=== PATIENT | female | born 1990 | race Caucasian/White ===

== ENCOUNTER → 2018-06-06 21:54 | Observation (INO) ==
--- OUTSIDE RECORDS SUMMARY | 2018-06-06 18:56 | External Medical Summary | Referral Summary ---
:1990 Author Organization [facility] [address] [place] [address] Care Team Providers Name Role Phone Leopoldo Wolrey Primary Care Physician Encounter VC Date(s): 09/01/17 - 09/01/17 [facility] [place] [address] [place] Discharge Diagnosis: Grief Discharge Diagnosis: Depression with anxiety Discharge Disposition: 01-Home or Self Care Attending Physician: Juany Cain APRN Admitting Physician: Juany Cain APRN Vital Signs Most recent to oldest [Reference Range]: 1 Temperature Tympanic [36.6-38.1 degC] 36.2 degC *LOW* (09/01/17 10:48 AM) Peripheral Pulse Rate [60-100 bpm] 64 bpm (09/01/17 10:48 AM) Blood Pressure [90-140/60-90 mmHg] 96/62 mmHg (09/01/17 10:48 AM) Allergies, Adverse Reactions, Alerts No Known Allergies Medications busPIRone 10 mg oral tablet 10 mg 1 tabs, Oral, TID, # 90 tabs, 0 Refill(s), Pharmacy: [id number], 1 tabs Oral TID Start Date: 09/01/17 Status: OrderedWellbutrin XL 150 mg/24 hours oral tablet, extended release 150 mg 1 tabs, Oral, q24hr, # 30 tabs, 0 Refill(s), Pharmacy: [id number] Start Date: 09/01/17 Status: Ordered Social History Social History Type Response Smoking Status Never smoker entered on: 12/20/14 Assessment and Plan Extracted from: Title: Office Visit Note Author: Juany Cain APRN Date: 09/01/17 Depression with anxiety Ordered: Office Visit Level 4 Est 15824 Grief Discussed methods of dealing with grief,loss ofanticipated relationship repairand creation of positive memoriesfrom past experiences with the loss loved one. Ordered: Office Visit Level 4 Est 77215 30 minute visit [id number] in counseling. We discussedinitiation of a routine physical exercise to stimulate depression reducinghormones. We also looked at the role of unresolved grief issue s as a contribute to her currentdepression. She oftenkeeps her feelings to herselfand I urged her to reinforce social activities and verbalization of feelings, needs, and desires. Will begin WellbutrinXL 150 mg once every 24 hours. BuSpar 10 mg up to 3 times a day when necessary anxiety. Will see her back in 2 weeks unless she has problems sooner Addendum by Leopoldo Worley DO on September 01, 2017 13:12:15 CDT I reviewed this chart, the patient's medical history, and the Resident's/DIRECTOR IMMUNOLOGY 's/PA/RN's/PharmD's documented findings, and concur with the assessment and plan as above.
--- OUTSIDE RECORDS SUMMARY | 2018-06-06 18:56 | External Medical Summary | Continuity of Care Document ---
:1990 Author Organization [facility] Address [address] [place], [place] [id number] Phone Care Team Providers Name Role Phone Juany Wong Unavailable Unavailable Allergies, Adverse Reactions, Alerts Substance Reaction Severity Status No Known Drug Allergies Unknown Active Medications Medication Instructions Dosage Effective Dates Status Comments (start - stop) buspirone 10 mg take 1 tablet by oral 10 MG - Active tablet route 3 times every day bupropion HCl XL 150 take 1 tablet by oral 150 MG - Active mg 24 hr tablet, route every day extended release Problems Condition Effective Dates (start - stop) Clinical Status Pap Smear Screening, Cervix - Encounter for removal of intrauterine - contraceptive device Encounter for removal of intrauterine contraceptive device Pelvic Pain - Active Depression Active Active Procedures Procedure Date Remove intrauterine device (IUD) No Charge Office Visit Specimen handling/transport Results Test Name Date and Time Measure Units Reference Range Abnormal Flag Comments Unknown Advance Directives Directive Yes / No Effective Date File Name Unknown Encounters Encounter Practice Location Reason(s) Diagnoses Date Provider Care Team Description For Visit Members [facility] [place] Pap Smear Jace Benton In Womens Screening, [address] 700 Provider: Eugene ANDRADE CervixPavan 7 [facility] [address], for removal of Center [place], [place], intrauterine , [place] Angel 700 [id number], contraceptive 120, Medical [place] deviceEncounter [address] [place] [address] tel:[phone] for removal of [place], [place] 120, [address] intrauterine [id number] [place], contraceptive , [place]. [place], device tel: [phone]. [phone] tel:[phone] Reji Rey Dec-1 Jace Referring In Womens 8-201 [place]. 700 Provider: Health [place], 4 Medical [place] [address], Center [place], , [facility] 700 [id number], 120, Medical [place], [place] tel:+21 [place], [facility] 120, [address] [id number] [place], , . [place], tel: [phone]. [id number] tel:[phone] Reji [place] Oct-2 Jace In Womens 8-201 [place]. 700 Health [place], 4 Medical [address], [place], , [facility] [id number], 120, [place], tel:+21 [place], [id number] , [place]. tel: [phone] Reji Rey Apr-3 Amaya In Womens 0-201 Lisandra. Health [facility], 4 700 [address], [place], [place], [place] [id number], , [facility] 120, tel:[phone] [place], [phone] [place], [id number] , [place]. tel: [phone] Family History Family Member Diagnosis Age At Onset No family history of Osteoporosis Paternal Grandmother Diabetes mellitus No family history of Lung Disease No family history of Hypertension Paternal Grandmother Epilepsy No family history of Uterine Cancer No family history of Kidney Problems No family history of Breast Cancer No family history of Thyroid Disorder No family history of Ovarian Cancer Paternal Grandmother Stroke Paternal Grandmother Cardiovascular Disease No family history of Colon Cancer Immunizations Vaccine Date Status Comments Tdap completed Source: New Immunization Record Influenza, seasonal, injectable, completed Source: Other Provider preservative free, 3 yrs or older Payers Payer name Insurance type Covered constitution party ID Authorization(s) JUHI TRAN [id number] Social History Type Description Quantity Date Captured Alcohol Use Details No Caffeine Use Details combo rare per day Tobacco Use Status Never smoked tobacco Smoking Status Never smoker Non-Smoking Tobacco Use : No Details Available : No Details Available Details Vital Signs Date / Height Weight BMI Pulse Blood Temperature Respiratory Body Head BMI Time: Rate Pressure Rate Surface Circumference percentile Area 170.80 103 140/87 -2017 lbs /min mm[Hg] 9:31 AM Chief Complaint And Reason For Visit Unknown Chief Complaint And Reason For Visit Reason For Referral Reason For Referral Unknown Plan Of Care Date Type Action Status Future Order: Lab Order Pap Smear With HPV Reflex If ASCUS Ordered ([id number]) Date Type Problem Goal Intervention Status Start Date Unknown. History Of Present Illness Encounter Date Complaint History Of Present Illness This patient has no known history of present illness Functional Status Encounter Date Functional Assessment Cognitive Assessment Unknown Medications Administered Medication Instructions Dosage Effective Dates (start - stop) Status Comments Drug Treatment Unknown Instructions Date Instruction Additional Information Unknown
--- OUTSIDE RECORDS SUMMARY | 2018-06-06 18:56 | External Medical Summary | Continuity of Care Document ---
:1990 Author Organization [facility] Address [address] [place], [place] [id number] Phone Care Team Providers Name Role Phone [...] Measure Units Reference Range Abnormal Flag Comments Panel Description: Pap Smear With HPV Reflex If ASCUS Document Pap Smear 08:30:00 See scanned report Advance Directives Directive Yes / No Effective Date File Name Unknown Encounters Encounter Practice Location Reason(s) Diagnoses Date Provider Care Team Description For Visit Members Reji [place] Pap Smear Jace Benton In Womens Screening, 8-201 [place]. 700 Provider: Eugene ANDRADE, CervixEncounter 7 Medical [place] [address], for removal of Center [place], intrauterine , [facility] 700 [id number], contraceptive 120, Medical [place] deviceEncounter Ashley [address] tel: for removal of [place], [place] 120, [address] intrauterine [id number] [place], contraceptive , [place]. [place], device tel: [phone]. [id number] tel:[phone] Reji [place] Dec-1 Jace Referring In Womens 8-201 [place]. 700 Provider: Health [place], 4 [facility] [address], [place], , [facility] 700 [id number], 120, Medical [place] tel:21 [place], Miguel [place] 120, [address] [id number] [place], , . [place], tel: [phone]. [id number] tel:[phone] Reji [place] Oct-2 Jace In Womens 8-201 [place]. 700 Health [place], 4 Medical [address], [place], , [facility] [id number], 120, [place], tel:21 [place], [id number] , [place]. tel: [phone] Reji Rey Apr-3 Amaya In Womens 0-201 Lisandra. Health [place], 4 700 [address], [facility] [place], [place] [id number], , [facility] 120, tel:21 [place], [address] [place], [id number] , [place]. tel: [phone] Family History Family Member Diagnosis Age At [...] Covered constitution party ID Authorization(s) JUHI TRAN [id number] Social History Type Description Quantity Date Captured [...] Plan Of Care Date Type Action Status Unknown. Date Type Problem Goal Intervention Status Start [...]
--- OUTSIDE RECORDS SUMMARY | 2018-06-06 18:56 | External Medical Summary | Continuity of Care Document ---
:1988 Author Organization [facility] Address [address] [place], [place] [phone] Phone Care Team Providers Name Role Phone [...] Active Depression Active Active Procedures Procedure Date Unknown Results Test Name Date and Time Measure Units Reference Range Abnormal Flag Comments Unknown Advance Directives Directive Yes / No Effective Date File Name Unknown Encounters Encounter Practice Location Reason(s) Diagnoses Date Provider Care Team Description For Visit Members Reji Rey Mar-0 Jace In Womens 5-201 [place]. 700 Health [place], 8 Medical [address], Center [place], Miguel Angel [place] [id number], 120, [place], tel:[phone] [place], [id number] , [place]. tel: [phone] Reji Rey Pap Smear Nov-2 Jace Referring In Womens Screening, 8-201 [place]. 700 Provider: Eugene ANDRADE CervixEncounter 7 Medical [place] [address], for removal of Center [place], intrauterine Miguel [place] 700 [id number], contraceptive 120, Medical deviceEncounter [place] tel:[phone] for removal of [place], [place] 120, [address] intrauterine [id number] [place], contraceptive , [place]. [place], device tel: [phone]. [id number] tel:[phone] Reji [place] Dec-1 Jace Referring In Womens 8-201 [place]. 700 Provider: Health [facility], 4 [facility] [address], [place], , [place] [id number], 120, [facility] tel:+21 [place], [facility] 120, [address] [id number] [place], , . [place], tel: [phone]. [id number] tel:[phone] Reji [place] Oct-2 Jace In Womens 8-201 [place]. 700 Health [facility], 4 Medical [address], [place], , [facility] [id number], 120, [place], tel:+21 [place], [id number] , [place]. tel: [phone] Reji Rey Apr-3 Amaya In Womens 0-201 Lisandra. [facility], 4 [facility] [address], [facility] Kevin [place], [place] [id number], , [facility] 120, tel:+21 [place], [address] [place], [id number] , [place]. tel: [phone] Family History Family Member Diagnosis Age At [...] Covered constitution party ID Authorization(s) JUHI TRAN [id number] Social History Type Description Quantity Date Captured Unknown Vital Signs Date / Height Weight BMI Pulse Blood Temperature Respiratory Body Head BMI Time: Rate Pressure Rate Surface Circumference percentile Area Unknown Chief Complaint And Reason For Visit Unknown [...]
--- OUTSIDE RECORDS SUMMARY | 2018-06-06 18:56 | External Medical Summary | Continuity of Care Document ---
:1988 Author Organization [facility] Address [address] [place], [place] [id number] Phone Care Team Providers Name Role Phone [...] Team Description For Visit Members Reji Rey Sep-3 Jace In Womens 0-201 [place]. 700 Health [place], 7 Medical [address], Center [place], Miguel [place] [id number], 120, [place], tel:[phone] [place], [id number] , [place]. tel: [phone] Reji [place] Pap Smear Sep- Jace Referring In Womens Screening, 8-201 [place]. 700 Provider: Eugene ANDRADE CervixEncounter 7 Medical [place] [address], for removal of Center [place], intrauterine [place] 700 [id number], contraceptive 120, Medical deviceEncounter [place] tel:[phone] for removal of [place], [place] 120, [address] intrauterine [id number] [place], contraceptive , [place]. [place], device tel: [phone]. [id number] tel:[phone] Reji [place] Dec-1 Jace Referring In Womens 8-201 [place]. 700 Provider: Health [place], 4 [facility] [address], [place], , [place] [id number], 120, Medical [facility] tel:+21 [place], [facility] 120, [address] [id number] [place], , . [place], tel: [phone]. [id number] tel:[phone] Reji [place] Oct-2 Jace In Womens 8-201 [place]. 700 Health [place], 4 Medical [address], [place], , [facility] [id number], 120, [place], tel:+21 [place], [id number] , [place]. tel: [phone] Reji Rey Apr-3 Amaya In Womens 0-201 Lisandra. [facility], 4 [facility] [address], [facility] Kevin [place], [place] [id number], , [facility] 120, tel:+21 [place], [address] [place], [id number] , [place]. tel: [phone] Family History Family Member Diagnosis Age At [...] older Payers Payer name Insurance type Covered libertarian ID Authorization(s) JUHI TRAN [id number] Social History Type Description Quantity Date Captured [...]
--- OUTSIDE RECORDS SUMMARY | 2018-06-06 18:56 | External Medical Summary | Continuity of Care Document ---
:1990 Author Organization [facility] Address [address] [place], [place] [id number] Phone Care Team Providers Name Role Phone [...] Team Description For Visit Members Reji Rey Oct- Jace In Womens 0-201 [place]. 700 Health [place], 7 Medical [address], Center [place], [place] [id number], 120, [place], tel:[phone] [place], [id number] , [place]. tel: [phone] Reji Rey Pap Smear Sep- Jace Referring In Womens Screening, 8-201 [place]. 700 Provider: Eugene ANDRADE CervixEncounter 7 Medical [place] [address], for removal of Center [place], intrauterine [place] 700 [id number], contraceptive 120, Medical deviceEncounter [place] tel:+21 for removal of [place], [place] 120, [address] intrauterine [id number] [place], contraceptive , [place]. [place], device tel: [phone]. [id number] tel:[phone] Reji [place] Dec-1 Jace Referring In Womens 8-201 [place]. 700 Provider: Health [facility], 4 [facility] [address], [place], , [place] [id number], 120, [facility] tel:+21 [place], [facility] 120, [address] [id number] [place], , . [place], tel: [phone]. [id number] tel:[phone] Reji [place] Oct-2 Jace In Womens 8-201 [place]. 700 Health [place], 4 Medical [address], [place], , [facility] [id number], 120, [place], tel:+21 [place], [id number] , [place]. tel: [phone] Reji Rey Apr-3 Amaya In Womens 0-201 Lisandra. [facility], 4 [facility] [address], [facility] Kevin [place], [place] [id number], , [facility] 120, tel:+21 [place], [address] [place], [id number] , [place]. tel: [phone] Family History Family Member Diagnosis Age At [...] type Covered libertarian ID Authorization(s) JUHI TRAN [id number] Social History Type Description Quantity Date Captured [...]
[2018-06-06] MEDS: LR 1,000 ML IV SCH ×2 (19:32→20:41)
[2018-06-06 19:55] VITALS: RESP 16; O2SAT 100
[~2018-06-06 21:54] MED LIST: LR 1,000 ML IV SCH; ONDANSETRON 4 MG SENT HOME ONE; ONDANSETRON 4 MG/2 ML INJECTION IVP ONE
[2018-06-06 22:04] VITALS: BP 117/68; PULSE 54; TEMP 98.1
== END | disposition home or self-care (01) ==
LOC: MC
PROVIDERS: ADMIT Obstetrics & Gynecology; ATTEND Obstetrics & Gynecology